=== PATIENT | female | born 1995 | race Caucasian/White ===

== ENCOUNTER 2025-08-30 10:07 | Outpatient (CLI) | payer OTHER, SELFPAY ==
--- OUTSIDE RECORDS SUMMARY | 2025-08-30 10:21 | XMS_ITS | Clinical Summary ---
Author Organization [facility] Healthcare Address [address] [place] [address] Care Team Providers Care Bilingual Administrative Assistant Name Role Phone Moises Buchanan MD Primary Care Provider + Allergies No known active allergies Medications No known medications Active Problems No known active problems Social History Tobacco Use Types Packs/Day Years Used Date Smoking Tobacco: Never Personal Safety Answer Date Recorded Getting School Help Needed Not on file 09/19 Comments Unknown Sex and Gender Information Value Date Recorded Sex Assigned at Not on file Legal Sex Female 11:27 PM SAMPLE WASHER Gender Identity Not on file Sexual Orientation Not on file Last Filed Vital Signs Vital Sign Reading Time Taken Comments Blood Pressure - - Pulse - - Temperature 35.9 C (96.6 F) 10/08/2020 10:33 AM SAMPLE WASHER Respiratory Rate - - Oxygen Saturation - - Inhaled Oxygen Concentration - - Weight 113.4 kg (250 lb) 10/08/2020 10:33 AM SAMPLE WASHER Height 170.2 cm (5' 7) 10/08/2020 10:33 AM SAMPLE WASHER Body Mass Index 39.16 10/08/2020 10:33 AM SAMPLE WASHER Plan of Treatment Health Maintenance Due Date Last Done Comments Cervical Cancer Screening 1996 Depression Screening 1996 Hepatitis C Screening 1996 Varicella Vaccines (1 of 2 - 13+ 2-dose series) 2009 Regular Well Visit/Exam 18-64 2014 HPV Vaccines (1 - 3-dose SCDM series) 2023 Influenza Vaccine (#1) 2025 DTaP/Tdap/Td Vaccine (8 - Td or Tdap) 02/17/2028 02/16/2018, 01/15/2007, 11/24/2001, Additional history exists Hepatitis B Screening Completed 06/14/1997 , 1996, 1996 Pneumococcal vaccine <65 Aged Out No longer eligible based on patient's age to complete this topic Insurance ANTHEM PREFERRED ANTHEM PREFERRED [facility] CHOICE PLUS [facility] HMO/PPO Address: [place] [address] Care Teams Bilingual Administrative Assistant Relationship Specialty Start Date End Date Moises Buchanan MD PCP - General Internal Medicine 12/23/17
--- OUTSIDE RECORDS SUMMARY | 2025-08-30 10:21 | XMS_ITS | Clinical Summary ---
Author Organization [facility] Address [address] [place] [address] Phone Care Team Providers Care Accountancy Professor Name Role Phone Moises Buchanan MD Primary Care Provider [phone] Juan Gomez MD Unavailable [phone] Saurabh Matthews MD Unavailable Medications Chlorhexidine Gluconate (HIBICLENS EX) by Apply externally route. Wash for acne Active DOXYCYCLINE MONOHYDRATE PO Take 100 mg by mouth 2 times daily as needed for Other (for HS flare ups). Active clindamycin (CLEOCIN T) 1 % Lotion Apply 1 Each 2 times daily. use small dime sized thin film on affected area as needed for HS Active omeprazole (PriLOSEC) 40 MG CAPSULE DELAYED RELEASEIndicati ons:Gastroesoph ageal reflux disease without esophagitis Take 1 capsule by mouth once daily 90 Capsule 3 08/12/20 25 Active omeprazole (PriLOSEC) 40 MG CAPSULE DELAYED RELEASEIndicati ons:Gastroesoph ageal reflux disease without esophagitis Take 1 Capsule by mouth daily. 90 Capsule 3 08/10/20 24 025 Discontinued Active Problems Problem Noted Date Diagnosed Date Hidradenitis suppurativa 08/10/2025 Bilateral knee pain 04/19/2025 Vasovagal near-syncope 08/10/2024 Overview (08/10/2024): Blood drawing. Gastroesophageal reflux disease without esophagi tis Resolved Problems Problem Noted Date Diagnosed Date Resolved Date Pilonidal sinus without abscess 01/10/2020 08/10/2025 Complex tear of medial menis cus of right knee as current injury 08/18/2018 09/02/2019 Infected pilonidal cyst 11/25/201611/29 Encounters Date Type Department Care Team Description 08/14/2025 Results Follow-Up [facility] [address] [place] [address] Moises Buchanan MD CMP (COMPREHENSIVE METABOLIC PANEL), LIPID PANEL, THYROID STIMULATING HORMONE (TSH), Additional followed-up results: 2 08/12/[address] [facility] [address] [place] [address] Moises Buchanan MD Medication Refill 08/10/2025 12:20 PM GROWTH HACKER Lab [facility] [address] [place] [id number] Encounter for health maintenance examination (Adult) Discharge Disposition: Discharged to home or Selfcare 08/10/2025 10:30 AM GROWTH HACKER Office [facility] [address] [place] [address] Moises Buchanan MD Encounter for health maintenance examination (Adult) (Primary Dx); Gastroesophageal reflux disease without esophagitis Discharge Disposition: Discharged to home or Selfcare 08/10/2025 Travel 07/19/2025 2:45 PM GROWTH HACKER Office Visit [facility] [address] [place] [address] Antonio Langford, PAC Eustachian tube dysfunction, right (Primary Dx); Fasciculations of muscle Discharge Disposition: Discharged to home or Selfcare 07/19/2025 Travel 07/03/2025 Telephone [facility] [address] [place] [address] Moises Buchanan MD Referral 06/13/2025 4:30 PM CDT Urgent Care Visit [facility] [address] [place] [address] Dory Patrick APRN, VICE PRESIDENT REGULATORY Eustachian tube dysfunction, right (Primary Dx) Discharge Disposition: Discharged to home or Selfcare 06/13/2025 Travel 06/13/2025 Nurse Triage [facility] [address] [place] [address] Moises Buchanan MD Advice Only; Ear Pain from Last 3 Months Immunizations Immunization Administration Dates Next Due Covid-19, Mrna, Lnp-s, Pf, 3 0 Mcg/0.3 Ml Dose (e-Go aeroplanes) 11/09/2020 DTAP VACCINE, UNSPECIFIED FORMULATION 11/24/2001 ,03/20/1998 DTP Vaccine 03/14/1997,01/06/1997,1996 Hepatitis A Vaccine 10/26/2015,03/02/2015 Hepatitis B Vaccine 06/14/1997,1996,1996 Hib Vaccine,unspecified Formulation 11/30,03/14/1997,01/06/1997,11/11 Inactivated Polio Vaccine 11/24/2001,03/14/1997, 1996 MMR Vaccine 11/24/2001,12/19/1997 Meningococcal MCV4, Unspecif ied Formulation 03/18/2018 Meningococcal Vaccine 03/17/2018,04/24/2008 OPV 03/20/1998 TDAP Vaccine 02/17/2018,01/15/2007 Family History Medical History Relation Name Comments No Known Problems Brother Colon Cancer Father Diabetes Father High Cholesterol Father Skin Cancer Maternal Grandfather Lung Cancer Maternal Grandmother High Cholesterol Mother Cancer Paternal Grandmother Possibl e cancer No Known Problems Sister Relation Name Status Comments Brother Alive Father Alive Maternal Grandfather Maternal Grandmother Mother Alive Paternal Grandfather Paternal Grandmother Sister Alive Social History Tobacco Use Types Packs/Day Years Used Date Smoking Tobacco: Never Passive Smoke Exposure: Never Smokeless Tobacco: Never Tobacco Cessation:Counseling Given: No Alcohol Use Standard Drinks/Week Comments Yes 0 (1 standard drink = 0.6 oz pur e alcohol) occasional drink PHQ-2 Answer Date Recorded Total Score - Questions 1-9 0 05/01 Hunger Vital Sign Answer Date Recorded Within the past 12 months, y ou worried that your food would run out before you got the money to buy more. Patient unable to answer 07/04/2024 Within the past 12 months, t he food you bought just didn't last and you didn't have money to get more. Patient unable to answer 07/04/2024 PRAPARE - Transportation Answer Date Re corded In the past 12 months, has l ack of transportation kept you from medical appointments or from getting medications? Patient unable to answer 07/04/2024 In the past 12 months, has l ack of transportation kept you from meetings, work, or from getting things needed for daily living? Patient unable to answer 07/04/2024 Housing Stability Vital Sign Answer Dre e Recorded In the last 12 months, was t here a time when you were not able to pay the mortgage or rent on time? Patient unable to answer 07/04/2024 In the past 12 months, how m any times have you moved where you were living? 0 07/04/2024 At any time in the past 12 m [facility], were you homeless or living in a assisted (including now)? Patient unable to answer 07/04/2024 Social Connection and Isolation Panel Answer Date Recorded In a typical week, how many times do you talk on the phone with family, friends, or neighbors? Patient declined 08/10/2025 How often do you get togethe r with friends or relatives? Patient declined 08/10/2025 How often do you attend mosque or zoroastrian serv ices? Patient declined 08/10/2025 Do you belong to any clubs o r organizations such as mosque groups, unions, fraternal or athletic groups, or school groups? Patient declined 08/10/2025 How often do you attend meet ings of the clubs or organizations you belong to? Patient declined 08/10/2025 Are you , , di vorced, , never , or living with a partner? Patient declined 08/10/2025 AUDIT-C Answer Date Recorded Q1: How often do you have a drink containing alc ohol? Patient declined 08/10/2025 Q2: How many drinks containi ng alcohol do you have on a typical day when you are drinking? Patient declined 08/10/2025 Q3: How often do you have si x or more drinks on one occasion? Patient declined 08/10/2025 Overall Financial Resource Strain (CARDIA) Answe r Date Recorded How hard is it for you to pa y for the very basics like food, housing, medical care, and heating? Patient declined 08/10/2025 [facility] - Occupational Stress Questionnaire Answer Date Recorded Do you feel stress - tense, restless, nervous, or anxious, or unable to sleep at night because your mind is troubled all the time - these days? Patient declined 08/10/2025 Exercise Vital Sign Answer Date Recorde d On average, how many days pe r week do you engage in moderate to strenuous exercise (like a brisk walk)? Patient declined On average, how many minutes do you engage in exercise at this level? Patient declined 08/10/2025 Hunger Vital Sign Answer Date Recorded Within the past 12 months, y ou worried that your food would run out before you got the money to buy more. Patient declined Within the past 12 months, t he food you bought just didn't last and you didn't have money to get more. Patient declined 07/2025 PRAPARE - Transportation Answer Date Re corded In the past 12 months, has l ack of transportation kept you from medical appointments or from getting medications? Patient declined 08/10/2025 In the past 12 months, has l ack of transportation kept you from meetings, work, or from getting things needed for daily living? Patient declined 08/10/2025 Housing Stability Vital Sign Answer Dre e Recorded In the last 12 months, was t here a time when you were not able to pay the mortgage or rent on time? Patient declined 08/10/20 25 In the past 12 months, how m any times have you moved where you were living? 0 08/10/2025 At any time in the past 12 m [facility], were you homeless or living in a assisted (including now)? Patient declined 08/10/2025 [facility] Utilities Answer Date Recorded In the past 12 months has e electric, gas, oil, or water company threatened to shut off services in your home? Patient declined 08/10/2025 Education Answer Date Recorded What is the highest level of school you have completed or the highest degree you have received? Master's degree (e.g., MA, MS, Zoraida, MEd, BOWL ATTENDANT, ROSA) 10/24/2021 Sexually Active Control Partners Comments Not Currently Comments No Sex and Gender Information Value Date Recorded Sex Assigned at Not on file Legal Sex Female 12:29 AM CDT Gender Identity Not on file Sexual Orientation Not on file Last Filed Vital Signs Vital Sign Reading Time Taken Comments Blood Pressure 130/66 08/10/2025 10:05 AM GROWTH HACKER Pulse 74 08/10/2025 10:05 AM GROWTH HACKER Temperature 36.6 C (97.9 F) 08/10/2025 10:05 AM GROWTH HACKER Respiratory Rate 18 07/19/2025 2:30 PM GROWTH HACKER Oxygen Saturation 98% 08/10/2025 10:05 AM GROWTH HACKER Inhaled Oxygen Concentration - - Weight 120.7 kg (266 lb) 08/10/2025 10:05 AM GROWTH HACKER Height 170.2 cm (5' 7) 08/10/2025 10:05 AM GROWTH HACKER Body Mass Index 41.66 08/10/2025 10:05 AM GROWTH HACKER Plan of Treatment Upcoming Encounters Date Type Department Care Team (Late st Contact Info) Description 10/04/2025 8:00 AM GROWTH HACKER Office Visit [facility] [place] [address] [place] [address] Antonio Langford PAC [address] [place] [address] Gopi Dickens MD [address] [address] 08/13/2026 10:30 AM GROWTH HACKER Office Visit [facility] - [place] [address] [place] [address] Moises Buchanan MD [address] [place] [address] Health Maintenance Due Date Last Done Comments Pap Smear 2017 Influenza Immunization (#1) 2025 SARS-COV-2 Immunization ( season) 2025 02/21/2022, 11/30/2020, 11/09/2020 DTaP/Tdap/Td Immunization (8 - Td or Tdap) 02/18/2028 02/17/2018, 01/15/2007, 11/24/2001, Additional history exists Td Immunization Every 10 Years (Adults With 1 Tdap) 02/18/2028 02/17/2018, 01/15/2007 Respiratory Syncytial Virus (RSV) Immunization (Adult) (1 - 1-dose 75+ series) 2071 Hepatitis B Immunization Completed 997, 1996, 1996 Meningococcal Immunization (ACWY) Aged Out 03/18/2018, 03/17/2018, 04/24/2008 No longer eligible based on patient's age to complete this topic Hepatitis C Virus (HCV) Screening Completed 08/10/2025 Human Papillomavirus (HPV) Immunization (No Doses Required) Completed Pneumococcal Immunization Combined Aged Out No longer eligible based on patient's age to complete this topic Rotavirus Immunization Aged Out No lo nger eligible based on patient's age to complete this topic Varicella Immunization Discontinued Procedures Procedure Name Priority Date/Time Associated Diagnosis Comments CBC WITH AUTO DIFFERENTIAL Today 08/10/2025 10:36 AM GROWTH HACKER Encounter for health maintenance examination (Adult) HEPATITIS C ANTIBODY Routine 08/10/2025 10:36 AM GROWTH HACKER Encounter for health maintenance examination (Adult) THYROID STIMULATING HORMONE (TSH) Today 08/10/2025 10:36 AM GROWTH HACKER Encounter for health maintenance examination (Adult) LIPID PANEL Routine 08/10/2025 10:36 AM GROWTH HACKER Encounter for health maintenance examination (Adult) CMP (COMPREHENSIVE METABOLIC PANEL) Today 08/10/2025 10:36 AM GROWTH HACKER Encounter for health maintenance examination (Adult) COMPLETE BLOOD COUNT (CBC) WITH DIFF Today 08/10/2025 10:36 AM GROWTH HACKER Encounter for health maintenance examination (Adult) from Last 3 Months Results * (ABNORMAL) CBC WITH AUTO DIFFERENTIAL (08/10/2025 10:36 AM GROWTH HACKER) Pathologist [facility] WBC 9.88 4.00 - 12.00 10(3)/mcL 08/10/2025 12:45 PM GROWTH HACKER [facility] RBC 4.99 3.80 - 5.30 10(6)/mcL 08/10/2025 12:45 PM GROWTH HACKER [facility] HEMOGLOBIN (HGB) 12.6 12.0 - 15.8 g/dL 08/10/2025 12:45 PM GROWTH HACKER [facility] HEMATOCRIT (HCT) 40.6 36.0 - 47.0 % 08/10/2025 12:45 PM GROWTH HACKER [facility] MCV 81.4(L) 82.0 - 96.0 fL 08/10/2025 12:45 PM GROWTH HACKER [facility] MCH 25.3(L) 26.0 - 34.0 pg 08/10/2025 12:45 PM GROWTH HACKER [facility] MCHC 31.0 31.0 - 36.0 g/dL 08/10/2025 12:45 PM GROWTH HACKER [facility] PLATELET COUNT 392 140 - 440 10(3)/mcL 08/10/2025 12:45 PM GROWTH HACKER [facility] RDW 14.0 11.8 - 15.5 % 08/10/2025 12:45 PM GROWTH HACKER [facility] MPV 11.1 9.7 - 12.4 fL 08/10/2025 12:45 PM GROWTH HACKER [facility] NEUTROPHILS 67.1 47.0 - 73.0 % 08/10/2025 12:45 PM GROWTH HACKER [facility] LYMPHOCYTES 25.3 18.0 - 42.0 % 08/10/2025 12:45 PM GROWTH HACKER [facility] MONOCYTES 5.5 4.0 - 12.0 % 08/10/2025 12:45 PM GROWTH HACKER [facility] EOSINOPHILS 1.1 0.0 - 5.0 % 08/10/2025 12:45 PM GROWTH HACKER [facility] BASOPHILS 0.6 0.0 - 1.0 % 08/10/2025 12:45 PM GROWTH HACKER [facility] IMMATURE GRANULOCYTE 0.4 0.0 - 0.4 % 08/10/2025 12:45 PM GROWTH HACKER [facility] ABSOLUTE NEUTROPHILS 6.63 1.60 - 7.70 10(3)/[facility] 08/10/2025 12:45 PM GROWTH HACKER [facility] ABSOLUTE LYMPHOCYTES 2.50 1.30 - 3.20 10(3)/[facility] 08/10/2025 12:45 PM GROWTH HACKER [facility] ABSOLUTE MONOCYTES 0.54 0.20 - 1.00 10(3)/[facility] 08/10/2025 12:45 PM GROWTH HACKER [facility] ABSOLUTE EOSINOPHIL 0.11 0.00 - 0.40 10(3)/[facility] 08/10/2025 12:45 PM GROWTH HACKER [facility] ABSOLUTE BASOPHILS 0.06 0.00 - 0.10 10(3)/[facility] 08/10/2025 12:45 PM [facility] ABSOLUTE IMMATURE GRANULOCYTE 0.04(H) 0.00 - 0.03 10 (3) [facility]. 08/10/2025 12:45 PM GROWTH HACKER [facility] NRBC PER 100 WBC 0 08/10/20 12:45 PM [facility] Blood Venipuncture / Unknown 08/10/2025 10:36 AM GROWTH HACKER 08/10/2025 10:36 AM GROWTH HACKER us Moises Buchanan MD HEMATOLOGY ORDERABLES Fin al Result [facility] [address] [place] [address] * THYROID STIMULATING HORMONE (TSH) (08/10/2025 10:36 AM GROWTH HACKER) TSH 0.831 0.300 - 5.000 mIU/L 08/10/2025 2:12 PM GROWTH HACKER [facility] Blood Venipuncture / Unknown 08/10/2025 10:36 AM GROWTH HACKER 08/10/2025 10:36 AM GROWTH HACKER us Moises Buchanan MD CHEMISTRY ORDERABLES Jenifer l Result [facility] [address] [place] [address] * LIPID PANEL (08/10/2025 10:36 AM GROWTH HACKER) CHOLESTEROL 170 <200 mg/dL 08/10/2025 1:49 PM GROWTH HACKER [facility] TRIGLYCERIDES 83 <150 mg/dL 08/10/2025 1:49 PM GROWTH HACKER [facility] HDL CHOLESTEROL 45 >40 mg/dL 1:49 PM [facility] LDL 108 <130 mg/dL 08/10/2025 1:49 PM [facility] VLDL 17 10 - 50 mg/dL 08/10/2025 1:49 PM [facility] CHOL/HDL RATIO 3.8 0.0 - 4.4 08/10/2025 1:49 PM GROWTH HACKER [facility] NON-HDL CHOLESTEROL 125 <130 mg/dL 08/10/2025 1:49 PM GROWTH HACKER [facility] IS THE PATIENT REQUIRED TO BE FASTING? Yes 08/10/2025 1:49 PM [facility] HAS THE PATIENT BEEN FASTING? Yes 08/10/2025 1:49 PM GROWTH HACKER [facility] Blood Venipuncture / Unknown 08/10/2025 10:36 AM GROWTH HACKER 08/10/2025 10:36 AM GROWTH HACKER Narrative [facility] - 08/10/2025 1:49 PM GROWTH HACKER NCEP GUIDELINES FOR LIPID INTERPRETATION TOTAL CHOLESTEROL DESIRABLE <200 BORDERLINE 200-239 HIGH >=240 LDL CHOLESTEROL OPTIMAL <100 NEAR OPTIMAL 100-129 BORDERLINE 130-159 HIGH 160-189 VERY HIGH >=190 Calculated using the Friedewald equation. HDL CHOLESTEROL LOW <40 *HIGH >=60 TRIGLYCERIDES NORMAL <150 BORDERLINE 150-199 HIGH 200-499 VERY HIGH >=500 VLDL calculated using Triglycerides/5. *HDL CHOLESTEROL >=60 mg/dL counts as a negative risk factor; its presence removes one risk factor from the total. Based on guidelines from the National Cholesterol Education Program, desirable levels for non HDL cholesterol are 30 mg/dL above target levels for LDL cholesterol. Moises Buchanan MD CHEMISTRY ORDERABLES Jenifer l Result [facility] [address] [place] [address] * HEPATITIS C ANTIBODY (08/10/2025 10:36 AM GROWTH HACKER) [facility] hepatitis C antibody 0.23 <1 S/CO 08/10/2025 11:04 PM GROWTH HACKER [facility] Comment: Signal/Cutoff ratio < 0.79 is Nondetected Signal/Cutoff ratio 0.80-0.99 is Grayzone Signal/Cutoff ratio > 0.99 is Detected Supplemental assays are recommended if signal/cutoff ratio is >/=1.00. Signal/cutoff ratio result >/= 5.00 is 97% predictive of positivity for recombinant immunoblot assay (RIBA) and will be reported to the [place] Department of Public Health as required. Blood Venipuncture / Unknown 08/10/2025 10:36 AM GROWTH HACKER 08/10/2025 10:36 AM GROWTH HACKER Moises Buchanan MD CHEMISTRY ORDERABLES Jenifer l Result [facility] [address] [place] [address], [place] * (ABNORMAL) CMP (COMPREHENSIVE METABOLIC PANEL) (08/10/2025 10:36 AM GROWTH HACKER) SODIUM 140 136 - 145 mmol/L 08/10/2025 1:49 PM [facility] POTASSIUM 3.8 3.5 - 5.1 mmol/L 08/10/2025 1:49 PM [facility] CHLORIDE 109(H) 98 - 107 mmol/L 08/10/2025 1:49 PM [facility] CO2, VENOUS 23 22 - 30 mmol/L 08/10/2025 1:49 PM [facility] ANION GAP 11.8 <18.0 mmol/L 08/10/2025 1:49 PM [facility] GLUCOSE 88 70 - 99 mg/dL 08/10/2025 1:49 PM [facility] BUN 11 5 - 18 mg/dL 08/10/2025 1:49 PM [facility] CREATININE, BLOOD 0.78 0.60 - 1.00 mg/dL 08/10/2025 1:49 PM [facility] BUN/CREATININE RATIO 14 12 - 20 ratio 08/10/2025 1:49 PM [facility] TOTAL PROTEIN 7.2 6.0 - 8.0 g/dL 08/10/2025 1:49 PM [facility] ALBUMIN 4.3 3.5 - 5.0 g/dL 08/10/2025 1:49 PM [facility] A/G RATIO 1.5 1.0 - 2.2 08/10/2025 1:49 PM [facility] CALCIUM 9.1 8.7 - 10.5 mg/dL 08/10/2025 1:49 PM [facility] T BILI 0.5 0.2 - 1.2 mg/dL 08/10/2025 1:49 PM [facility] SGOT (AST) 18 <43 U/L 08/10/2025 1:49 PM [facility] SGPT (ALT) 14 <56 U/L 08/10/2025 1:49 PM [facility] ALKALINE PHOSPHATASE 79 40 - 150 U/L 08/10/2025 1:49 PM GROWTH HACKER [facility] IS THE PATIENT REQUIRED TO BE FASTING? No 08/10/2025 1:49 PM GROWTH HACKER [facility] GFR, ESTIMATED >60 >=60 08/10/2025 1:49 PM GROWTH HACKER [facility] Comment: Creatinine Clearance is the preferred criteria for selecting drug dose adjustments in renally impaired patients. The GFR is provided as additional pertinent clinical information. GFR is reported in mL/min/1.73 sq m. Calculation based on the 2020 Chronic Kidney Disease Epidemiology Collaboration (CKD-EPI) equation refit without adjustment for race. GFR, EST. >60 >=60 1:49 PM GROWTH HACKER [facility] Comment: Creatinine Clearance is the preferred criteria for selecting drug dose adjustments in renally impaired patients. The GFR is provided as additional pertinent clinical information. GFR is reported in mL/min/1.73 sq m. Calculation based on the 2009 Chronic Kidney Disease Epidemiology Collaboration (CKD-EPI). GFR, EST. NONAFRICAN >60 >=60 08/10/2025 1:49 PM GROWTH HACKER [facility] Comment: Creatinine Clearance is the preferred criteria for selecting drug dose adjustments in renally impaired patients. The GFR is provided as additional pertinent clinical information. GFR is reported in mL/min/1.73 sq m. Calculation based on the 2009 Chronic Kidney Disease Epidemiology Collaboration (CKD-EPI). Blood Venipuncture / Unknown 08/10/2025 10:36 AM GROWTH HACKER 08/10/2025 10:36 AM GROWTH HACKER us Moises Buchanan MD CHEMISTRY ORDERABLES Jenifer patricia Result [facility] [address] [place] [address] from Last 3 Months Insurance [facility] Care Teams Accountancy Professor Relationship Specialty Start Date End Date Moises Buchanan MD [address] [place] [address] PCP - General Internal Medicine 02/12/16 Juan Gomez MD 1 [facility] [address] [place] [address] Consulting Physician Orthopaedic Surgery 09/02/19 Saurabh Matthews MD [address] [facility] [address] [place] [address] Consulting Physician Colon and Rectal Surgery 01/20/24
--- OUTSIDE RECORDS SUMMARY | 2025-08-30 10:21 | XMS_ITS | Encounter Summary ---
Author Organization [facility] Address [address] [place] [id number] Phone Care Team Providers Care Welder Railcar Mechanic Name Role Phone Moises Buchanan MD Primary Care Provider [phone] Juan Gomez MD Unavailable [phone] Saurabh Matthews MD Unavailable Reason for Visit * Reason Comments Medication Refill Encounter Details Date Type Department Care Team (Late st Contact Info) Description 08/12/2025 Refill [facility] - [facility] - [place] [address] [place] [address] Moises Buchanan MD [address] [place] [address] Medication Refill Social History Tobacco Use Types Packs/Day Years Used Date Smoking Tobacco: Never Passive Smoke Exposure: Never Smokeless Tobacco: Never Alcohol Use Standard Drinks/Week Comments Yes 0 [...] any time in the past 12 m [facility], were you homeless or living in a mcc (including now)? Patient unable to answer 07/04/2024 Social Connection and Isolation Panel Answer Date Recorded In a typical week, how many times do you talk on the phone with family, friends, or neighbors? Patient declined 08/10/2025 How often do you get togethe r with friends or relatives? Patient declined 08/10/2025 How often do you attend synagogue or lutheran serv ices? Patient declined 08/10/2025 Do you belong to any clubs o r organizations such as synagogue groups, unions, fraternal or athletic groups, or [...] medical care, and heating? Patient declined 08/10/2025 [facility] - Occupational Stress Questionnaire Answer Date Recorded [...] any time in the past 12 m [facility], were you homeless or living in a mcc (including now)? Patient declined 08/10/2025 [facility] Utilities Answer Date Recorded In the past 12 months has th e electric, gas, oil, or water company threatened to shut off services in your home? Patient declined 08/10/2025 Education Answer Date Recorded What is the highest level of school you have completed or the highest degree you have received? Master's degree (e.g., MA, MS, Zoraida, MEd, DATA SECURITY ADMINISTRATOR, ROSA) 10/24/2021 Sexually Active Control Partners Comments Not Currently Comments No Sex and Gender Information Value Date Recorded Sex Assigned at Not on file Legal Sex Female 12:29 AM CDT Gender Identity Not on file Sexual Orientation Not on file documented as of this encounter Plan of Treatment Upcoming Encounters Date Type Department Care Team (Late st Contact Info) Description 10/04/2025 8:00 AM MUSIC PROFESSOR Office Visit [facility] - Ear, Nose & Throat - [place] [address] [place] [address] Antonio Langford PAC [address] [place] [phone] Gopi Dickens MD [address] [facility] [place] [address] [id number] 08/13/2026 10:30 AM MUSIC PROFESSOR Office Visit [facility] - Primary Care - [place] [address] [place] [address] Moises Buchanan MD [address] [place], [place] [id number] documented as of this encounter Visit Diagnoses Diagnosis Gastroesophageal reflux disease without esophagitis Esophageal reflux documented in this encounter Additional Health Concerns Assessment Noted Time PHQ-9 Depression Total Score: 0 05/17/20 25 10:08 AM CDT documented as of this encounter Care Teams Welder Railcar Mechanic Relationship Specialty Start Date End Date Moises Buchanan MD [address] [place] [address] PCP - General Internal Medicine 02/12/16 Juan Gomez MD [address] [place], [place] [address], [place] [address] Consulting Physician Orthopaedic Surgery 09/02/19 Saurabh Matthews MD [address] [place] [address] [address] Consulting Physician Colon and Rectal Surgery 01/20/24 documented as of this encounter
--- OUTSIDE RECORDS SUMMARY | 2025-08-30 10:21 | XMS_ITS | Encounter Summary ---
Author Organization [facility] Address [address] [place] [address] Phone Care Team Providers Care Fiberglass Technician Name Role Phone Moises Buchanan MD Primary Care Provider [phone] Juan Gomez MD Unavailable [phone] Saurabh Matthews MD Unavailable Reason for Visit * Reason Onset Date Comments Rash 04/10/2025 Encounter Details Date Type Department Care Team (Late st Contact Info) Description 04/10/2025 [facility] [address] [place] [address] Moises Buchanan MD [address] [place] [address] Rash Social History Tobacco Use Types Packs/Day Years Used Date Smoking Tobacco: Never Smokeless Tobacco: Never Alcohol Use Standard Drinks/Week Comments Yes 0 (1 standard drink = 0.6 oz pur e alcohol) occasional drink C Utilities Answer Date Recorded In the past 12 months has e electric, gas, oil, or water company threatened to shut off services in your home? Patient unable to answer 07/04/2024 PHQ-2 Answer Date Recorded Total Score - Questions 1-9 0 12/30 Hunger Vital Sign Answer Date Recorded Within [...] any time in the past 12 m [facility], were you homeless or living in a correction (including now)? Patient unable to answer 07/04/2024 Education Answer Date Recorded What is the highest level of school you have completed or the highest degree you have received? Master's degree (e.g., MA, MS, Zoraida, MEd, RESEARCH AND EVALUATION ANALYST, ROSA) 10/24/2021 Sexually Active Control Partners Comments Not Currently Comments No Sex and Gender Information Value Date Recorded Sex Assigned at Not on file Legal Sex Female 12:29 AM CDT Gender Identity Not on file Sexual Orientation Not on file documented as of this encounter Miscellaneous Notes * Telephone Encounter - Lawrence Rice RN - 04/10/2025 8:47 AM CDT SITUATION: 29 y.o. with rash BACKGROUND: Patient contacting PCP office. Per chart review, hx of hidradenitis suppurativa ASSESSMENT: Symptom Description / Location: Patient calling and states she has had a rash for 9 days. She was outside doing yard work. Looks like poison luz elena. She has blisters on left lower leg. Some are leaking clear fluid. Spread to lower arms. Spreading up arms. Now on torso. Look like white heads and blisters. Do itch. Denies any other symptoms. Treatment / Response: regular medications today. Also IvyDry prn, with some relief. Pain ratin/10 left leg. Intermittent throbbing. Denies fever. LMP: not asked RECOMMENDATION: Caller agreeable to highest disposition listed: Go to Office or Video Visit Now. Care advice provided per triage guideline. Caller verbalized understanding. Due to office unavailability within disposition, advised for patient to be seen at prompt care or urgent care. Caller agreeable to prompt care/urgent care. Discussed utilizing [employer] to: send messages to providers - Reason for Disposition: Large blisters or oozing sores . Protocols Used: Poison Luz Elena - [place] - [place] See care advice and disposition for Guideline. First positive answer recorded, all responses to prior questions were negative. If symptoms increase, change or if new symptoms develop, call your health care provider or call back. Recommendations were based on caller information and is not a diagnosis. Verified and reviewed all triage information with caller. * Telephone Encounter - Lorraine Otero - 04/10/2025 8:44 AM CDT Symptom: Rash or Redness - Widespread Outcome: Schedule an appointment within 3 days Reason: Caller denied all higher acuity questions The caller accepted this outcome. Caller Denied: * Trouble breathing * Dark red or purple spots * Large blisters on skin * Trouble swallowing * Fever documented in this encounter Plan of Treatment Upcoming Encounters Date Type Department Care Team (Late st Contact Info) Description 10/04/2025 8:00 AM COIL PLACER [facility] - [facility] - [place] [address] [place] [phone] Antonio Langford PAC [address] [place] [address] Gopi Dickens MD [address] [facility] [address] [place] [phone] 08/13/2026 10:30 AM COIL PLACER Office Visit [facility] - [facility] - [place] [address] [place] [address] Moises Buchanan MD [address] [place], [place] [id number] documented as of this encounter Visit Diagnoses Not on filedocumented in this encounter Additional Health Concerns Assessment Noted Time PHQ-9 Depression Total Score: 0 01/22/20 24 4:22 PM CDT documented as of this encounter Care Teams Fiberglass Technician Relationship Specialty Start Date End Date Moises Buchanan MD [address] [place], [place] [id number] PCP - General Internal Medicine 02/12/16 Juan Gomez MD [address] [place] [address], [place] [address] Consulting Physician Orthopaedic Surgery 09/02/19 Saurabh Matthews MD [address] [address] [address] Consulting Physician Colon and Rectal Surgery 01/20/24 documented as of this encounter
== END 2025-08-30 10:08 | disposition home or self-care (01) ==
LOC: ANHAUDIO 10:07
PROVIDERS: PCP Internal Medicine; Visit Provider Otolaryngology
DX: H69.91 Unspecified Eustachian tube disorder, right ear (principal)
CPT/HCPCS: 92557; 92567